=== PATIENT | female | born 1945 | race Caucasian/White ===

== ENCOUNTER 2020-11-07 12:16 | Emergency (ER) | payer OTHER, SELFPAY ==
[~2020-11-07] VITALS: Ht 147.3 cm; Wt 60.8 kg
[2020-11-07 12:18] VITALS: BP 179/70; Ht 147.3 cm; Wt 60.8 kg
== END 2020-11-07 13:34 | disposition home or self-care (01) ==
LOC: ED 12:16
DX: U07.1 COVID-19 (principal); I10 Essential (primary) hypertension; Z88.0 Allergy status to penicillin
CPT/HCPCS: U0003